=== PATIENT | male | born 1940 | race African-American/Black ===

== ENCOUNTER 2017-02-03 11:44 | Outpatient (CLI) | payer MEDICARE, BC ==
[2017-02-03 12:29] LABS: Anion Gap 19 mmol/L (10-20); BUN (Urea Nitrogen) 55 mg/dL (8.4-25.7); Calc. Creatinine Clearance 0 mL/min (70-130); Calcium 8.9 mg/dL (7.8-10.44); Carbon Dioxide 21 mmol/L (23-31); Chloride 105 mmol/L (98-107); Estimated GFR-MDRD 24; Glucose 181 mg/dL (83-110); Potassium 4.6 mmol/L (3.5-5.1); Sodium 140 mmol/L (136-145)
== END 2017-02-03 11:45 | disposition home or self-care (01) ==
LOC: BURLAB 11:44
PROVIDERS: ATTEND Internal Medicine Nephrology
DX: N18.4 Chronic kidney disease, stage 4 (severe) (principal)
CPT/HCPCS: 36415; 80048; 83970

== ENCOUNTER 2017-05-05 08:05 | Emergency (ER) | payer MEDICARE, BC | END 2017-05-05 08:16 | disposition home or self-care (01) | LOC: BURERS 08:05 | DX: S80.812A Abrasion, left lower leg, initial encounter (principal); K21.9 Gastro-esophageal reflux disease without esophagitis; E78.5 Hyperlipidemia, unspecified; E11.9 Type 2 diabetes mellitus without complications; I10 Essential (primary) hypertension; Z87.891 Personal history of nicotine dependence; W20.8XXA Other cause of strike by thrown, projected or falling object, initial encounter | CPT/HCPCS: 99283 ==

== ENCOUNTER 2017-12-11 10:51 | Emergency (ER) | payer MEDICARE, BC ==
[2017-12-11] MEDS ORDERED: Sulfameth/Trimethoprim DS 800-160mg TAB ONE (11:17)
[2017-12-11] MEDS ORDERED: Bacitracin Zinc 1 Packet ONE (11:43)
--- NOTE | 2017-12-11 20:15 | RAD ---
LEFT FOOT THREE VIEWS: 12/11/17 There is a fracture of the proximal phalanx of the fifth digit. There is no significant displacement. The joints appear intact. The remainder of the foot showed no acute changes. There are may be a radha le joint space narrowing in the first MTP joint Some small osteophytes are seen in some o the intert arsal joints. A small calcaneal spur was present. IMPRESSION: Acute fracture of the proximal phalanx of the fifth toe. POS: HOME
== END 2017-12-11 11:50 | disposition home or self-care (01) ==
LOC: BURERS 10:51
DX: S92.515A Nondisplaced fracture of proximal phalanx of left lesser toe(s), initial encounter for closed fracture (principal); S91.312A Laceration without foreign body, left foot, initial encounter; K21.9 Gastro-esophageal reflux disease without esophagitis; E78.5 Hyperlipidemia, unspecified; E11.9 Type 2 diabetes mellitus without complications; I10 Essential (primary) hypertension; Z87.891 Personal history of nicotine dependence; Z79.899 Other long term (current) drug therapy; W22.8XXA Striking against or struck by other objects, initial encounter

== ENCOUNTER 2018-01-06 12:16 | Emergency (ER) | payer MEDICARE, BC ==
[2018-01-06] MEDS ORDERED: Fluorescein Opthalmic Strip ONE (12:24)
[2018-01-06] MEDS ORDERED: Neomycin-Polymyxin-Hc 7.5 ML BOT ONE (12:29)
== END 2018-01-06 12:42 | disposition home or self-care (01) ==
LOC: BURERS 12:16
DX: T15.11XA Foreign body in conjunctival sac, right eye, initial encounter (principal); E11.9 Type 2 diabetes mellitus without complications; E78.5 Hyperlipidemia, unspecified; I10 Essential (primary) hypertension; I49.9 Cardiac arrhythmia, unspecified; K21.9 Gastro-esophageal reflux disease without esophagitis; Z87.891 Personal history of nicotine dependence; Z79.84 Long term (current) use of oral hypoglycemic drugs; Z79.899 Other long term (current) drug therapy
CPT/HCPCS: 99283

== ENCOUNTER 2018-05-09 08:48 | Emergency (ER) | payer MEDICARE, BC ==
--- NOTE | 2018-05-09 11:04 | RAD ---
CHEST 2 VIEWS: Date: 05/09/18 Comparison is made with the 08/07/17 study. In the interval, there has begun an area of increased haziness in the right lung base medially. An ea rly pneumonia is suspected. The lungs are hyperexpanded as usual. The heart is borderline in size, bu t there are no congestive changes. The bony structures show no acute change. IMPRESSION: Increasing right basilar haziness. Cannot exclude early pneumonia. POS: HOME
== END 2018-05-09 09:20 | disposition home or self-care (01) ==
LOC: BURERS 08:48
DX: J18.9 Pneumonia, unspecified organism (principal); K21.9 Gastro-esophageal reflux disease without esophagitis; E78.5 Hyperlipidemia, unspecified; F17.210 Nicotine dependence, cigarettes, uncomplicated; I49.9 Cardiac arrhythmia, unspecified; E11.9 Type 2 diabetes mellitus without complications; I10 Essential (primary) hypertension
CPT/HCPCS: 71046

== ENCOUNTER 2018-09-02 09:50 | Outpatient (CLI) | payer MEDICARE, BC ==
--- NOTE | 2018-09-02 21:57 | RAD ---
CHEST TWO VIEWS 09/02/18 Comparison is made with the 08/17/18 study done at [facility]. The heart is normal in size and unchanged. There is no vascular congestion, edema, or pleural effusi on. No focal pulmonary infiltrate was seen. There is no sign of pulmonary nodules. IMPRESSION: No acute thoracic findings. POS: HOME
--- NOTE | 2018-09-03 07:40 | ULT ---
BILATERAL RENAL ULTRASOUND: 09/02/18 Comparison is made with a prior ultrasound of 08/07/17. The patient is status post left nephrectomy. The right kidney was imaged and shows once again a rounded cystic appearing lesion in the middle thir d. It measures 2.8 cm in size. It is difficult to clear all of the echoes out of it, but is presumed to be a cyst given the appearance, location, and lack of growth over time. It certainly has not enlar ged in the interval. There is no hydronephrosis present. Several frames through the urinary bladder s how no significant findings. IMPRESSION: 2.8 cm hypoechoic lesion of the middle third of the right kidney. Most likely a cyst. Unchanged from the prior exams. POS: HOME
== END 2018-09-02 09:51 | disposition home or self-care (01) ==
LOC: BURULT 09:50
PROVIDERS: ATTEND Urology
DX: C64.2 Malignant neoplasm of left kidney, except renal pelvis (principal); N28.1 Cyst of kidney, acquired; N28.89 Other specified disorders of kidney and ureter
CPT/HCPCS: 71046; 76770

== ENCOUNTER 2018-11-29 11:01 | Emergency (ER) | payer MEDICARE, BC ==
[2018-11-29] MEDS ORDERED: Dexamethasone 4 MG TAB ONE (11:43)
[2018-11-29] MEDS ORDERED: AMOXicillin 250 MG CAP ONE (11:43)
[2018-11-29] MEDS ORDERED: Dexamethasone 4 mg/ml Vial ONE (11:45)
== END 2018-11-29 11:55 | disposition home or self-care (01) ==
LOC: BURERS 11:01
DX: J06.9 Acute upper respiratory infection, unspecified (principal); K21.9 Gastro-esophageal reflux disease without esophagitis; E78.5 Hyperlipidemia, unspecified; E11.9 Type 2 diabetes mellitus without complications; I10 Essential (primary) hypertension; Z87.891 Personal history of nicotine dependence
CPT/HCPCS: 99283; J1100; J8540

== ENCOUNTER 2018-12-13 15:47 | Emergency (ER) | payer MEDICARE, BC ==
--- NOTE | 2018-12-13 16:29 | RAD ---
CHEST 2 VIEWS: Date: 12/13/18 Comparison is made with an 09/02/18 study. FINDINGS: The heart is normal in size. Faint calcification is seen in the aortic arch. The lungs are clear with out any convincing sign of pneumonia. There is a minimal amount of retrocardiac streaking on the late ral view, but I cannot confirm an infiltrate in the lung bases on the PA film at this time. There are no large effusions. The mediastinum is unremarkable. IMPRESSION: No acute thoracic findings. POS: HOME
== END 2018-12-13 16:35 | disposition home or self-care (01) ==
LOC: BURERS 15:47
DX: J18.9 Pneumonia, unspecified organism (principal); K21.9 Gastro-esophageal reflux disease without esophagitis; E78.5 Hyperlipidemia, unspecified; E11.9 Type 2 diabetes mellitus without complications; I10 Essential (primary) hypertension; Z87.891 Personal history of nicotine dependence; Z79.899 Other long term (current) drug therapy; Z79.891 Long term (current) use of opiate analgesic; Z79.82 Long term (current) use of aspirin
CPT/HCPCS: 71046

== ENCOUNTER 2020-03-16 07:14 | Emergency (ER) | payer MEDICARE, BC ==
[2020-03-17 11:04] LABS: SARS-CoV-2 MS2 Positive; SARS-CoV-2 N Gene Negative; SARS-CoV-2 S Gene Negative; SARS-CoV-2 orf1ab Negative
== END 2020-03-16 08:15 | disposition home or self-care (01) ==
LOC: BURERS 07:14
DX: B37.0 Candidal stomatitis (principal); I49.9 Cardiac arrhythmia, unspecified; K21.9 Gastro-esophageal reflux disease without esophagitis; E78.5 Hyperlipidemia, unspecified; E11.9 Type 2 diabetes mellitus without complications; I10 Essential (primary) hypertension; Z87.891 Personal history of nicotine dependence; Z79.899 Other long term (current) drug therapy; Z79.82 Long term (current) use of aspirin; Z79.84 Long term (current) use of oral hypoglycemic drugs; Z20.828 Contact with and (suspected) exposure to other viral communicable diseases
CPT/HCPCS: 36416; 87635; 99284; U0003